=== PATIENT | male | born 1990 | race Caucasian/White ===

== ENCOUNTER 2019-11-09 10:08 | Emergency (ER) | payer SELFPAY ==
[2019-11-09 11:07] VITALS: BP 115/69
[2019-11-09 12:12] LABS: Influenza A Molecular Negative (Negative); Influenza B Molecular Negative (Negative)
--- NOTE | 2019-11-09 12:35 | UC ---
Throat Pain/Nasal Jay HPI - HPI Summary HPI Summary: 29-year-old male presenting with sore throat, swollen tonsils, and intermittent chest congestion 12 days. States he had a fever of 103 last week, denies any since. States he has not been able to eat or drink much because his throat hurts so bad. Denies nasal congestion. Denies nausea and vomiting. Denies shortness of breath and wheezing. States he took an [id number] cough syrup without relief of symptoms. - History of Current Complaint Chief Complaint: UCGeneralIllness Stated Complaint: SORE THROAT COUGH Hx Obtained From: Patient Pain Intensity: 0 - Allergies/Home Medications Allergies/Adverse Reactions: Allergies Allergy/AdvReac Type Severity Reaction Status Date / Time No Known Allergies Allergy Unverified 11/09/19 11:02 Home Medications: Home Medications Amoxicillin/Clavulanate TAB* [Augmentin TAB 875*] 875 mg PO BID #20 tab [Rx] PMH/Surg Hx/FS Hx/Imm Hx Other History Of: Negative For: Anticoagulant Therapy - Surgical History Surgical History: None - Family History Known Family History: Negative: Cardiac Disease - Social History Alcohol Use: None Substance Use Type: Marijuana Substance Use Comment - Amount & Last Used: occasional Smoking Status (MU): Former Smoker Have You Smoked in the Last Year: Yes When Did the Patient Quit Smoking/Using Tobacco: 09/2019 Review of Systems All Other Systems Reviewed And Are Negative: Yes Constitutional: Positive: Chills ENT: Positive: Sore Throat Respiratory: Positive: Cough. Negative: Shortness Of Breath Cardiovascular: Positive: Negative Gastrointestinal: Positive: Negative Musculoskeletal: Positive: Negative Neurological/Mental Status: Positive: Negative Physical Exam - Summary Physical Exam Summary: Vital Signs Reviewed: Yes A+Ox3, no distress Eyes: Conjunctiva Clear ENT: Hearing grossly normal, TM x 2 clear, moist, uvula midline, no exudate, + pharyngeal erythema, +tonsillar swelling Neck: Positive: Supple, tonsillar node enlargement Respiratory: Positive: No respiratory distress, No accessory muscle use + CTA throughout no w/r Cardiovascular: RRR nl s1, s2 Musculoskeletal Exam: SANTOS x 4 without difficulty Neurological: Positive: Alert Psychological: Positive: age appropriate behavior Skin: Positive: no rash, no ecchymosis Vital Signs: Initial Vital Signs Temp 98.9 F 11/09/19 11:02 Pulse 72 02/26/20 11:02 Resp 18 11/09/19 11:02 BP 115/69 11/09/19 11:02 Pulse Ox 99 11/09/19 11:02 Lab Results 11/09/19 11/09/19 Range/Units 12:00 12:54 Influenza A (Rapid) Negative (Negative) Influenza B (Rapid) Negative (Negative) Group A Strep Rapid Negative (Negative) Throat Pain/Nasal Course/Dx - Course Course Of Treatment: Negative rapid strep and flu tests. Educated patient on viral illness versus bacterial illness. Patient prefers to take antibiotics at this time, as he has been having increasing sore throat, tonsillar swelling, and difficulty eating and drinking for 12 days. I prescribed Augmentin and instructed to follow up with PCP for any worsening or persistent symptoms. Patient voiced understanding and agreed with the treatment plan. - Differential Dx/Diagnosis Provider Diagnosis: Pharyngitis Discharge ED - Sign-Out/Discharge Documenting (check all that apply): Patient Departure All imaging exams completed and their final reports reviewed: No Studies - Discharge Plan Condition: Stable Disposition: HOME Patient Education Materials: Pharyngitis (ED) Referrals: Steve Dupont MD [Primary Care Provider] - If Needed - Billing Disposition and Condition Condition: STABLE Disposition: Home
== END 2019-11-09 13:35 | disposition home or self-care (01) ==
LOC: UCEAST 10:08
DX: J02.9 Acute pharyngitis, unspecified (principal); Z87.891 Personal history of nicotine dependence
CPT/HCPCS: 87651; 99203; G0463